=== PATIENT | male | born 1995 | race Caucasian/White ===

== ENCOUNTER 2016-07-25 17:20 | Emergency (ER) | payer OTHER ==
[2016-07-25 17:32] VITALS: BP 118/65
--- NOTE | 2016-07-25 18:11 | UC ---
Back Pain HPI - HPI Summary HPI Summary: This is an otherwise healthy 20 yo male who presents with complaints of acute back pain. Patient was carrying to garbage bags outside and threw them into the garbage can. He had a sudden onset of severe mid back pain with SOB that lasted ~30 sec. SOB resoled but back pain persisted. He took APAP and applied heat at home before coming in to be examined. No history of back pain. - History of Current Complaint Chief Complaint: UCBackPain Stated Complaint: BACK INJURY - Allergies/Home Medications Allergies/Adverse Reactions: Allergies Allergy/AdvReac Type Severity Reaction Status Date / Time BENZYL PEROXIDE (TOPICAL) Allergy Severe Rash Uncoded 02/22/16 10:31 Home Medications: Home Medications Acetaminophen [Tylenol 8 Hour] 1,000 07/25/16 [History] Glutamine 500 mg PO 07/25/16 [History] PMH/Surg Hx/FS Hx/Imm Hx Endocrine History Of: Denies: Diabetes, Thyroid Disease, Hyperthyroidism, Hypothyroidism Cardiovascular History Of: Denies: Cardiac Disorders, Hypertension, Pacemaker/ICD Respiratory History Of: Reports: Asthma Denies: COPD GI/ History Of: Denies: Ulcer, Renal Disease Psychological History Of: Reports: Anxiety, Depression - Surgical History Surgical History: Yes Surgery Procedure, Year, and Place: RIGHT CLAVICLE. 07/2012- LEFT FOOT CALCANEUS /TALUS FUSION- PATIENT HAS A SCREW IN LEFT FOOT AND HAD PAIN/BURNING/PULLING SENSATION IN FOOT AT SITE OF SCREW WHEN WE ATTEMPTED TO SCAN HIS KNEE AT THE 3T - PT WAS RESCHEDULED FOR 1.5 AND WAS FINE- PT SHOULD NOT BE SCHEDULED FOR 3T. pyleoplasty to left kidney 03/30. MMT REPAIR LEFT KNEE - Family History Known Family History: Positive: None - Social History Alcohol Use: Weekly Alcohol Amount: 1 drink per week Substance Use Type: None Smoking Status (MU): Former Smoker Type: Smokeless Tobacco Have You Smoked in the Last Year: Yes - Immunization History Most Recent Influenza Vaccination: doesn't get Review of Systems Constitutional: Negative Skin: Negative Eyes: Negative ENT: Negative Respiratory: Negative Cardiovascular: Negative Gastrointestinal: Negative Genitourinary: Negative Motor: Negative Neurovascular: Negative Musculoskeletal: Arthralgia, Decreased ROM Neurological: Negative Psychological: Negative All Other Systems Reviewed And Are Negative: Yes Physical Exam Triage Information Reviewed: Yes Appearance: Well-Appearing Vital Signs: Initial Vital Signs Temp 98.3 F 07/25/16 17:27 Pulse 90 07/25/16 17:27 Resp 16 07/25/16 17:27 BP 118/65 07/25/16 17:27 Pulse Ox 99 07/25/16 17:27 Vital Signs Reviewed: Yes Neck exam: Normal Neck: Positive: Supple, Nontender, No Lymphadenopathy Respiratory Exam: Normal Respiratory: Positive: Lungs clear, Normal breath sounds. Negative: Crackles, Rhonchi, Wheezing Cardiovascular Exam: Normal Cardiovascular: Positive: RRR, No Murmur Abdominal Exam: Normal Abdomen Description: Positive: Nontender, Soft Musculoskeletal: Positive: Strength Intact, Other: - TTP over mid thoracic spine and R sided paraspinal TTP Neurological: Positive: Muscle Tone Normal, Unresponsive Diagnostics - Laboratory Diagnostic Studies Completed/Ordered: CXR - NAD. Tspine XR - NAD Back Pain Course/Dx - Course Course Of Treatment: This is an otherwise healthy 20 yo male who comes in with acute back pain. History is consistent with a thoracic disc herniation. Imaging negative. No acute neurologic symptoms on exam. Recommend ice/heat, NSAIDs. - Differential Dx/Diagnosis Differential Diagnosis/HQI/PQRI: Compressive Cord Syndrome, Fracture, Herniated Disc Provider Diagnoses: 1. Suspected thoracic disc herniation Discharge - Discharge Plan Condition: Stable Disposition: HOME Prescriptions: Cyclobenzaprine TAB* [Flexeril 10 MG TAB*] 10 mg PO TID PRN #20 tab PRN Reason: back pain/spasm Patient Education Materials: Thoracic Disc Herniation (ED) Referrals: Fareed Wheat MD [Primary Care Provider] - If Needed Additional Instructions: Activity: As tolerated Instructions: 1. Take 600-800 mg ibuprofen three times daily for the next several days 2. Use flexeril as needed for pain/spasm 3. Follow up with your PCP if you are still having pain after 7-10 days
--- NOTE | 2016-07-25 18:55 | RAD ---
Indication: Back pain. Comparison: May 24, 2013 chest radiograph. Technique: AP and lateral views thoracic spine. Report: Normal thoracic spine alignment. Negative for fracture or focal osseous lesion. Preserved disc spaces. Unremarkable paraspinal soft tissue contours. IMPRESSION: Negative exam.
--- NOTE | 2016-07-25 18:56 | RAD ---
INDICATION: Back pain, acute shortness of breath. COMPARISON: May 24, 2013 TECHNIQUE: Dual energy PA and routine lateral views of the chest were obtained. REPORT: Clear lungs and pleural spaces. Negative for pneumothorax. The heart, pulmonary vasculature, and mediastinal contours are unremarkable. Unremarkable osseous structures and soft tissue contours. IMPRESSION: No evidence for acute intrathoracic disease.
[2016-07-25] MEDS: Cyclobenzaprine TAB* 10 MG PO ONE ×2 (19:16→19:17)
== END 2016-07-25 19:18 | disposition home or self-care (01) ==
LOC: UCEAST 17:20
DX: M54.6 Pain in thoracic spine (principal); Z87.891 Personal history of nicotine dependence
CPT/HCPCS: 71020; 72070; 99212; A9270-GY; G0463

== ENCOUNTER 2016-11-06 16:52 | Emergency (ER) | payer MEDICAID, OTHER ==
[2016-11-06 16:59] VITALS: BP 107/68
--- NOTE | 2016-11-06 18:12 | UC ---
Headache HPI - HPI Summary HPI Summary: THREE WEEKS OF INTERMITTENT HEADACHE. ON RIGHT SIDE OF HEAD. NO FEVER. NO VISION CHANGES. OFTEN CONTROLLED BY EXCEDERIN. NO TRAUMA. NO NECK STIFFNESS. HAVING STRESS ABOUT MOVING, BUT HAS BEEN ONGOING FOR SEVERAL MONTHS. HAS PRIMARY CARE APPT TO EVALUATE HEADACHES SCHEDULED FOR NEXT WEEK - History Of Current Complaint Chief Complaint: UCHeadamartir Stated Complaint: HEADACHE Time Seen by Provider: 11/06/16 17:42 Hx Obtained From: Patient Onset/Duration: Gradual Onset, Lasting Weeks, Still Present Onset Of Symptoms: Gradual Pain Intensity: 3 Pain Scale Used: 0-10 Numeric Timing: Intermittent, Lasting:, Hours Character: Dull Location of Headache: Parietal - RIGHT SIDE Aggravating Factor: Nothing Allevating Factors: Nothing Associated Signs And Symptoms: Negative: Dizziness, Seizure, Nausea, Vomiting, Sinus Pressure, Fever, Neck Pain, Neck Stiffness, Decreased LOC, Visual Changes - Risk Factors SAH Risk Factors: Negative Meningitis Risk Factors: Negative SDH Risk Factors: Negative Temporal Arteritis Risk Factors: Negative - Allergies/Home Medications Allergies/Adverse Reactions: Allergies Allergy/AdvReac Type Severity Reaction Status Date / Time BENZYL PEROXIDE (TOPICAL) Allergy Severe Rash Uncoded 11/06/16 16:59 Home Medications: Home Medications Creatine [[id number]] 11/06/16 [History] Glutamine [l-Glutamine] 11/06/16 [History Confirmed 11/06/16] Levocarnitine [Carnitine] 11/06/16 [History] Protein Supplement* 11/06/16 [History] PMH/Surg Hx/FS Hx/Imm Hx Previously Healthy: Yes - Surgical History Surgical History: Yes Surgery Procedure, Year, and Place: RIGHT CLAVICLE. 07/2012- LEFT FOOT CALCANEUS /TALUS FUSION- PATIENT HAS A SCREW IN LEFT FOOT AND HAD PAIN/BURNING/PULLING SENSATION IN FOOT AT SITE OF SCREW WHEN WE ATTEMPTED TO SCAN HIS KNEE AT THE 3T - PT WAS RESCHEDULED FOR 1.5 AND WAS FINE- PT SHOULD NOT BE SCHEDULED FOR 3T. pyleoplasty to left kidney 03/30. MMT REPAIR LEFT KNEE - Family History Known Family History: Positive: None - Social History Lives: With Family Alcohol Use: None Alcohol Amount: 1 drink per week Substance Use Type: None Smoking Status (MU): Former Smoker Type: Smokeless Tobacco Have You Smoked in the Last Year: Yes - Immunization History Most Recent Influenza Vaccination: doesn't get Review of Systems Constitutional: Negative Skin: Negative Eyes: Negative ENT: Negative Respiratory: Negative Cardiovascular: Negative Gastrointestinal: Negative Genitourinary: Negative Motor: Negative Neurovascular: Negative Musculoskeletal: Negative Neurological: Headache Psychological: Negative All Other Systems Reviewed And Are Negative: Yes Physical Exam Triage Information Reviewed: Yes Appearance: Well-Appearing, No Pain Distress, Well-Nourished Vital Signs: Initial Vital Signs Temp 98.4 F 11/06/16 16:56 Pulse 75 11/06/16 16:56 Resp 16 11/06/16 16:56 BP 107/68 11/06/16 16:56 Pulse Ox 99 11/06/16 16:56 Vital Signs Reviewed: Yes Eye Exam: Normal ENT Exam: Normal ENT: Positive: Normal ENT inspection, Hearing grossly normal, Pharynx normal, TMs normal Dental Exam: Normal Neck exam: Normal Neck: Positive: Supple, Nontender, No Lymphadenopathy. Negative: Nuchal Rigidity, Tenderness @, Enlarged Nodes @ Respiratory Exam: Normal Respiratory: Positive: Chest non-tender, Lungs clear, Normal breath sounds, No respiratory distress, No accessory muscle use Cardiovascular Exam: Normal Cardiovascular: Positive: RRR, No Murmur, Pulses Normal Abdominal Exam: Normal Abdomen Description: Positive: Nontender, No Organomegaly Musculoskeletal Exam: Normal Neurological Exam: Normal Psychological Exam: Normal Psychological: Positive: Normal Response To Family Skin Exam: Normal Headache Course/Dx - Differential Dx/Diagnosis Differential Diagnosis/HQI/PQRI: Meningitis, Migraine, Sinus Headache, Temporal Arteritis, Tension Headache Provider Diagnoses: TENSION HEADACHE Discharge - Discharge Plan Condition: Stable Disposition: HOME Prescriptions: Butalb/Acetamin/Caff TAB* [Fioricet TAB*] 1 tab PO Q8HR PRN #12 tab MDD three tabs PRN Reason: Headache Patient Education Materials: Tension Headache (ED) Referrals: Iliana Julian MD [Medical Doctor] - Fareed Wheat MD [Primary Care Provider] -
== END 2016-11-06 17:59 | disposition home or self-care (01) ==
LOC: UCEAST 16:52
DX: G44.209 Tension-type headache, unspecified, not intractable (principal)
CPT/HCPCS: 99212; G0463

== ENCOUNTER 2016-11-19 21:52 | Emergency (ER) | payer MEDICAID ==
[2016-11-19 21:59] VITALS: BP 118/66
--- NOTE | 2016-11-19 22:45 | UC ---
Katie Mcadams Edward, scribed for Jacob Diaz MD on 11/19/16 at 2220 . Upper Extremity HPI - HPI Summary HPI Summary: 21 y/o male presents to [facility] c/o R wrist pain. Patient fell on his R wrist while helping his mother move at around 14:00 today. Wrist pain was rated at a 7 /10 at triage, described as an aching pain. Patient's R wrist fell on a large bowl. Since the fall, patient's wrist pain has gotten progressively worse and he has developed R wrist swelling. - History of Current Complaint Chief Complaint: UCLowerExtremity Stated Complaint: RT ARM INJURY Hx Obtained From: Patient Onset/Duration: Sudden Onset, Lasting Hours - Since early afternoon Severity Initially: Moderate Severity Currently: Moderate Pain Intensity: 7 Pain Scale Used: 0-10 Numeric Location Of Pain: Is Discrete @ - R wrist Associated Signs And Symptoms: Positive: Swelling - Allergies/Home Medications Allergies/Adverse Reactions: Allergies Allergy/AdvReac Type Severity Reaction Status Date / Time BENZYL PEROXIDE (TOPICAL) Allergy Severe Rash Uncoded 11/19/16 21:59 PMH/Surg Hx/FS Hx/Imm Hx Previously Healthy: No Respiratory History: Asthma - Surgical History Surgical History: Yes Surgery Procedure, Year, and Place: RIGHT CLAVICLE. 07/2012- LEFT FOOT CALCANEUS /TALUS FUSION- PATIENT HAS A SCREW IN LEFT FOOT AND HAD PAIN/BURNING/PULLING SENSATION IN FOOT AT SITE OF SCREW WHEN WE ATTEMPTED TO SCAN HIS KNEE AT THE 3T - PT WAS RESCHEDULED FOR 1.5 AND WAS FINE- PT SHOULD NOT BE SCHEDULED FOR 3T. pyleoplasty to left kidney 03/30. MMT REPAIR LEFT KNEE - Family History Known Family History: Negative: Cardiac Disease - Social History Alcohol Use: None Alcohol Amount: 1 drink per week Substance Use Type: None Smoking Status (MU): Former Smoker Type: Smokeless Tobacco Have You Smoked in the Last Year: Yes - Immunization History Most Recent Influenza Vaccination: doesn't get Review of Systems Constitutional: Negative Skin: Negative Eyes: Negative ENT: Negative Respiratory: Negative Cardiovascular: Negative Gastrointestinal: Negative Genitourinary: Negative Motor: Negative Neurovascular: Negative Musculoskeletal: Arthralgia - R wrist pain, Edema - Mild R wrist edema Neurological: Negative Psychological: Negative All Other Systems Reviewed And Are Negative: Yes Physical Exam Triage Information Reviewed: Yes Appearance: Well-Appearing, No Pain Distress Vital Signs: Initial Vital Signs Temp 97.2 F 11/19/16 21:54 Pulse 81 11/19/16 21:54 Resp 16 11/19/16 21:54 BP 118/66 11/19/16 21:54 Pulse Ox 100 11/19/16 21:54 Vital Signs Reviewed: Yes Eye Exam: Normal ENT: Positive: Normal ENT inspection Neck: Positive: Supple, Nontender Respiratory: Positive: Lungs clear, Normal breath sounds Cardiovascular: Positive: RRR Abdomen Description: Positive: Nontender, Soft Bowel Sounds: Positive: Present Musculoskeletal: Positive: Strength Intact, ROM Intact Neurological Exam: Normal Neurological: Positive: Alert Psychological Exam: Normal Skin: Positive: Other - 4 cm erythema on distal ulna proximal to wrist join. Slightly swollen and tender in that area. No skin break. Upper Extremity Course/Dx - Course Course Of Treatment: MEDICATIONS REVIEWED. NO CLINICAL EVIDENCE OF FRACTURE. DISCUSSED INJURY AND THE CARE OF THE INJURY WITH PATIENT. PATIENT WILL GET RECHECK IF NOT IMPROVING. - Differential Dx/Diagnosis Provider Diagnoses: RIGHT WRIST CONTUSION/SPRAIN Discharge - Discharge Plan Condition: Stable Disposition: HOME Patient Education Materials: Contusion in Adults (ED), Wrist Sprain (ED) Referrals: Fareed Wheat MD [Primary Care Provider] - Additional Instructions: FOLLOW UP WITH YOUR DOCTOR. RETURN TO THE EMERGENCY DEPARTMENT FOR ANY WORSENING OF YOUR CONDITION OR QUESTIONS OR CONCERNS. The documentation as recorded by the Katie lozano Edward accurately reflects the service I personally performed and the decisions made by me, Jacob Diaz MD.
== END 2016-11-19 22:30 | disposition home or self-care (01) ==
LOC: UCEAST 21:52
DX: S63.501A Unspecified sprain of right wrist, initial encounter (principal); S60.211A Contusion of right wrist, initial encounter; W01.0XXA Fall on same level from slipping, tripping and stumbling without subsequent striking against object, initial encounter; J45.909 Unspecified asthma, uncomplicated; F17.210 Nicotine dependence, cigarettes, uncomplicated
CPT/HCPCS: 99211; G0463

== ENCOUNTER 2016-12-13 22:29 | Emergency (ER) | payer MEDICAID, OTHER ==
[2016-12-13 22:40] VITALS: BP 121/80
== END 2016-12-14 00:49 | disposition left against medical advice (07) ==
LOC: ED 22:29
DX: H92.01 Otalgia, right ear (principal); Z53.21 Procedure and treatment not carried out due to patient leaving prior to being seen by health care provider

== ENCOUNTER 2016-12-14 13:55 | Emergency (ER) | payer OTHER ==
[2016-12-14 14:02] VITALS: BP 123/74
--- NOTE | 2016-12-14 14:45 | UC ---
Ear Complaint HPI - HPI Summary HPI Summary: RIGHT EAR PAIN FOR ONE DAY. ON 12/10/16 HAD SORE THROAT FEVER 102F, HEADACHE. SYMPTOMS RESOLVED THE NEXT DAY. USED QTIP TWO DAYS AGO. LAST NIGHT BEGAN HAVING EAR ACHE. NO DISCHARGE. - History of Current Complaint Chief Complaint: UCEar Stated Complaint: EAR PAIN Time Seen by Provider: 12/14/16 13:56 Hx Obtained From: Patient Onset/Duration: Gradual Onset, Lasting Days, Still Present Severity Initially: Moderate Severity Currently: Moderate Pain Intensity: 6 Pain Scale Used: 0-10 Numeric - Allergies/Home Medications Allergies/Adverse Reactions: Allergies Allergy/AdvReac Type Severity Reaction Status Date / Time BENZYL PEROXIDE (TOPICAL) Allergy Severe Rash Uncoded 12/14/16 14:02 Home Medications: Home Medications Acetaminophen [Mapap] 1 tab PO Q6HR PRN 12/14/16 [History Confirmed 12/14/16] Ascorbic Acid TAB* [Vitamin C TAB*] 1 tab PO DAILY PRN 12/14/16 [History Confirmed 12/14/16] Ear Drops 1 drop OTIC Q2HR PRN 12/14/16 [History Confirmed 12/14/16] PMH/Surg Hx/FS Hx/Imm Hx Previously Healthy: Yes - Surgical History Surgical History: Yes Surgery Procedure, Year, and Place: RIGHT CLAVICLE. 07/2012- LEFT FOOT CALCANEUS /TALUS FUSION- PATIENT HAS A SCREW IN LEFT FOOT AND HAD PAIN/BURNING/PULLING SENSATION IN FOOT AT SITE OF SCREW WHEN WE ATTEMPTED TO SCAN HIS KNEE AT THE 3T - PT WAS RESCHEDULED FOR 1.5 AND WAS FINE- PT SHOULD NOT BE SCHEDULED FOR 3T. pyleoplasty to left kidney 03/30. MMT REPAIR LEFT KNEE - Family History Known Family History: Positive: None Negative: Cardiac Disease - Social History Occupation: Employed Full-time Lives: With Family Alcohol Use: Occasionally Alcohol Amount: 1 drink per week Substance Use Type: None Smoking Status (MU): Former Smoker Type: Smokeless Tobacco Have You Smoked in the Last Year: Yes - Immunization History Most Recent Influenza Vaccination: doesn't get Review of Systems Constitutional: Negative Skin: Negative ENT: Ear Ache Respiratory: Negative Cardiovascular: Negative Gastrointestinal: Negative Genitourinary: Negative Motor: Negative Neurovascular: Negative Musculoskeletal: Negative Neurological: Negative Psychological: Negative All Other Systems Reviewed And Are Negative: Yes Physical Exam Triage Information Reviewed: Yes Appearance: Well-Appearing, No Pain Distress, Well-Nourished Vital Signs: Initial Vital Signs Temp 98.8 F 12/14/16 13:58 Pulse 71 12/14/16 13:58 Resp 16 12/14/16 13:58 BP 123/74 12/14/16 13:58 Pulse Ox 100 12/14/16 13:58 Vital Signs Reviewed: Yes ENT: Positive: Normal ENT inspection, Hearing grossly normal, Pharynx normal, TMs normal, Other: - RIGHT ERYTHEMA EDEMA EAC Dental Exam: Normal Neck exam: Normal Neck: Positive: Supple Respiratory Exam: Normal Respiratory: Positive: Chest non-tender, Lungs clear, Normal breath sounds, No respiratory distress, No accessory muscle use Cardiovascular Exam: Normal Cardiovascular: Positive: RRR, No Murmur Abdominal Exam: Normal Musculoskeletal Exam: Normal Musculoskeletal: Positive: Strength Intact, ROM Intact Neurological Exam: Normal Psychological Exam: Normal Skin Exam: Normal Ear Complaint Course/Dx - Differential Dx/Diagnosis Differential Diagnosis/HQI/PQRI: Otitis Externa, Otitis Media, URI Provider Diagnoses: RIGHT OTITIS EXTERNA Discharge - Discharge Plan Condition: Stable Disposition: HOME Prescriptions: Ciproflox/Dexameth OTIC.SUSP* [Ciprodex OTIC.SUSP*] 3 drop .SEE ORDER TID #1 btl Patient Education Materials: Otitis Externa (ED) Referrals: Fareed Wheat MD [Primary Care Provider] -
== END 2016-12-14 14:34 | disposition home or self-care (01) ==
LOC: UCEAST 13:55
DX: H60.91 Unspecified otitis externa, right ear (principal); Z87.891 Personal history of nicotine dependence
CPT/HCPCS: 99212; G0463

== ENCOUNTER 2016-12-15 14:24 | Emergency (ER) | payer OTHER ==
--- NOTE | 2016-12-15 14:27 | UC ---
Ear Complaint HPI - HPI Summary HPI Summary: 21 male presents with complains of right ear pain. - History of Current Complaint Stated Complaint: RECHECK EAR PAIN Time Seen by Provider: 12/15/16 14:27 - Allergies/Home Medications Allergies/Adverse Reactions: Allergies Allergy/AdvReac Type Severity Reaction Status Date / Time BENZYL PEROXIDE (TOPICAL) Allergy Severe Rash Uncoded 12/15/16 14:34 PMH/Surg Hx/FS Hx/Imm Hx Previously Healthy: Yes - Surgical History Surgical History: Yes Surgery Procedure, Year, and Place: RIGHT CLAVICLE. 07/2012- LEFT FOOT CALCANEUS /TALUS FUSION- PATIENT HAS A SCREW IN LEFT FOOT AND HAD PAIN/BURNING/PULLING SENSATION IN FOOT AT SITE OF SCREW WHEN WE ATTEMPTED TO SCAN HIS KNEE AT THE 3T - PT WAS RESCHEDULED FOR 1.5 AND WAS FINE- PT SHOULD NOT BE SCHEDULED FOR 3T. pyleoplasty to left kidney 03/30. MMT REPAIR LEFT KNEE - Family History Known Family History: Positive: None Negative: Cardiac Disease - Social History Alcohol Use: Occasionally Alcohol Amount: 1 drink per week Substance Use Type: None Smoking Status (MU): Former Smoker Type: Smokeless Tobacco Have You Smoked in the Last Year: Yes - Immunization History Most Recent Influenza Vaccination: doesn't get Review of Systems Constitutional: Negative Skin: Negative Eyes: Negative ENT: Ear Ache - right ear pain Respiratory: Negative Cardiovascular: Negative Gastrointestinal: Negative Genitourinary: Negative Motor: Negative Neurovascular: Negative Musculoskeletal: Negative Neurological: Negative Psychological: Negative All Other Systems Reviewed And Are Negative: Yes Physical Exam Triage Information Reviewed: Yes Eye Exam: Normal ENT: Positive: TM bulging, TM red, Other: - right otits externa Dental Exam: Normal Neck exam: Normal Neck: Positive: 1 Respiratory Exam: Normal Cardiovascular Exam: Normal Abdominal Exam: Normal Musculoskeletal Exam: Normal Neurological Exam: Normal Psychological Exam: Normal Skin Exam: Normal Ear Complaint Course/Dx - Differential Dx/Diagnosis Provider Diagnoses: right otits externa. right AOM. Discharge - Discharge Plan Condition: Stable Disposition: HOME Prescriptions: Amoxicillin/Clavulanate TAB* [Augmentin TAB 875*] 875 mg PO BID #20 tab Methylprednisolone [Medrol Dosepak 4 MG*] 4 mg PO .SEE JUSTUS INSTRUCTION #21 tab Neomyc/Polym/HC 1% OTIC SUSP* [Cortisporin Otic Susp 1%*] 4 drop RIGHT EAR QID # 1 btl Patient Education Materials: Earache (ED) Referrals: Fareed Wheat MD [Primary Care Provider] - If Needed
[2016-12-15 14:34] VITALS: BP 109/66
[2016-12-15] MEDS ORDERED: Carbamide Peroxide 6.5% OTIC* 15 ML BTL RIGHT EAR ONE (14:41)
[2016-12-15] MEDS ORDERED: Lidocaine 2% VISCOUS* 15 ML UDC PO ONE (15:05)
== END 2016-12-15 15:37 | disposition home or self-care (01) ==
LOC: UCEAST 14:24
DX: H60.91 Unspecified otitis externa, right ear (principal); H66.91 Otitis media, unspecified, right ear; Z87.891 Personal history of nicotine dependence
CPT/HCPCS: 99213; A9270-GY; G0463

== ENCOUNTER 2017-05-23 13:39 | Emergency (ER) | payer OTHER ==
[2017-05-23 13:57] VITALS: BP 115/67
--- NOTE | 2017-05-23 14:38 | UC ---
Dental HPI - HPI Summary HPI Summary: R upper jaw/tooth pain starting about 3 weeks ago. Has been intensifying/more constant for the last 1.5 weeks. Reports he needs his third molars removed and that he has an extra molar in the painful area. No swelling or fevers or drainage. Denies temperature sensitivity, mainly has pain with chewing. - History of Current Complaint Chief Complaint: UCEar Stated Complaint: DENTAL PAIN Time Seen by Provider: 05/23/17 14:14 Hx Obtained From: Patient Onset/Duration: Gradual Onset, Lasting Weeks Severity: Moderate Aggravating Factor(s): Chewing Alleviating Factor(s): Nothing - Allergies/Home Medications Allergies/Adverse Reactions: Allergies Allergy/AdvReac Type Severity Reaction Status Date / Time BENZYL PEROXIDE (TOPICAL) Allergy Severe Rash Uncoded 05/23/17 13:57 Home Medications: Home Medications Ibuprofen [Advil] 600 mg PO Q6H PRN 05/23/17 [History Confirmed 05/23/17] PMH/Surg Hx/FS Hx/Imm Hx Respiratory History: Asthma Neurological History: Migraine Other Psychological History: ADHD - Surgical History Surgical History: Yes Surgery Procedure, Year, and Place: RIGHT CLAVICLE. 07/2012- LEFT FOOT CALCANEUS /TALUS FUSION- PATIENT HAS A SCREW IN LEFT FOOT AND HAD PAIN/BURNING/PULLING SENSATION IN FOOT AT SITE OF SCREW WHEN WE ATTEMPTED TO SCAN HIS KNEE AT THE 3T - PT WAS RESCHEDULED FOR 1.5 AND WAS FINE- PT SHOULD NOT BE SCHEDULED FOR 3T. pyleoplasty to left kidney 03/30. MMT REPAIR LEFT KNEE - Family History Known Family History: Positive: None Negative: Cardiac Disease - Social History Lives: Alone Alcohol Use: Occasionally Alcohol Amount: 1 drink per week Substance Use Type: None Smoking Status (MU): Never Smoked Tobacco Type: Smokeless Tobacco Have You Smoked in the Last Year: Yes - Immunization History Most Recent Influenza Vaccination: none Review of Systems Constitutional: Negative Skin: Negative Eyes: Negative ENT: Dental Pain Respiratory: Negative Cardiovascular: Negative Gastrointestinal: Negative Genitourinary: Negative Motor: Negative Neurovascular: Negative Musculoskeletal: Negative Neurological: Negative Psychological: Negative Is Patient Immunocompromised?: No All Other Systems Reviewed And Are Negative: Yes Physical Exam Triage Information Reviewed: Yes Appearance: Well-Appearing, Well-Nourished, Pain Distress - mild Vital Signs: Initial Vital Signs Temp 98.0 F 05/23/17 13:53 Pulse 69 05/23/17 13:53 Resp 16 05/23/17 13:53 BP 115/67 05/23/17 13:53 Pulse Ox 99 05/23/17 13:53 Vital Signs Reviewed: Yes Eye Exam: Normal Eyes: Positive: Conjunctiva Clear ENT: Positive: Normal ENT inspection, Hearing grossly normal, Pharynx normal, TMs normal. Negative: Pharyngeal erythema, Nasal congestion, Nasal drainage, TM bulging, TM dull, TM red, Tonsillar swelling Dental Exam: Other - Pain around unerupted teeth #1 and extra molar (negative 1? ). No swelling or erythema Dental: Negative: Percussion Tenderness @, Gross Decay/Caries @ Neck exam: Normal Neck: Positive: Supple, Nontender, No Lymphadenopathy Respiratory Exam: Normal Respiratory: Positive: Chest non-tender, Lungs clear, Normal breath sounds, No respiratory distress, No accessory muscle use Cardiovascular Exam: Normal Cardiovascular: Positive: RRR, No Murmur Musculoskeletal Exam: Normal Neurological Exam: Normal Neurological: Positive: Alert Psychological Exam: Normal Skin Exam: Normal Dental Complaint Course/Dx - Differential Dx/Diagnosis Provider Diagnoses: Dental pain r upper molars Discharge - Discharge Plan Condition: Stable Disposition: HOME Prescriptions: HYDROcodone/ACETAMIN 5-325 MG* [[place] 5-325 TAB*] 1 tab PO BID #12 tab MDD 2 Naproxen TAB* [Naprosyn 375 mg TAB*] 375 mg PO Q8H PRN #21 tab PRN Reason: Pain Penicillin VK 500 MG TAB(NF) [Penicillin VK 500 mg Tab] 500 mg PO TID #21 tab Patient Education Materials: Toothache (ED) Referrals: Fareed Wheat MD [Primary Care Provider] - Additional Instructions: As we discussed, you will need urgent dental care. Make calls first thing tomorrow: Located in: [facility] Address: [address] [place] [address] Or [facility] Address: [address] [place] [address] If you develop fever, swelling, or worsening symptoms prior to dental care, please go to the nearest emergency department.
== END 2017-05-23 14:42 | disposition home or self-care (01) ==
LOC: UCEAST 13:39
DX: K08.89 Other specified disorders of teeth and supporting structures (principal); J45.909 Unspecified asthma, uncomplicated; G43.909 Migraine, unspecified, not intractable, without status migrainosus; F90.9 Attention-deficit hyperactivity disorder, unspecified type
CPT/HCPCS: 99212; G0463

== ENCOUNTER 2017-11-22 12:32 | Emergency (ER) | payer OTHER ==
[2017-11-22 12:52] VITALS: BP 119/72
--- NOTE | 2017-11-22 13:12 | UC ---
Back Pain HPI - HPI Summary HPI Summary: The patient is a 22-year-old male with the onset of back pain that occurred while he was working out at the gym. He was doing bicep curls. He had the acute onset of severe pain radiating from his lower scapula down to his iliac crests bilaterally. He has pain with twisting. He can bend at the waist but can only do so slowly. He has no bowel or bladder dysfunction. He has no leg pain or weakness. - History of Current Complaint Chief Complaint: UCBackPain Stated Complaint: BACK PAIN Time Seen by Provider: 11/22/17 12:55 Hx Obtained From: Patient Onset/Duration: Sudden Onset Timing: Constant Severity Initially: Severe Severity Currently: Moderate Pain Intensity: 5 Pain Scale Used: 0-10 Numeric Character: Dull, Aching, Throbbing, Spasmodic, Stiffness Aggravating Factor(s): Movement, Lifting, Bending Alleviating Factor(s): Rest, OTC Meds Associated Signs And Symptoms: Positive: Negative - Allergies/Home Medications Allergies/Adverse Reactions: Allergies Allergy/AdvReac Type Severity Reaction Status Date / Time BENZYL PEROXIDE (TOPICAL) Allergy Severe Rash Uncoded 11/22/17 12:52 PMH/Surg Hx/FS Hx/Imm Hx Previously Healthy: Yes - Surgical History Surgical History: Yes Surgery Procedure, Year, and Place: RIGHT CLAVICLE. 07/2012- LEFT FOOT CALCANEUS /TALUS FUSION- PATIENT HAS A SCREW IN LEFT FOOT AND HAD PAIN/BURNING/PULLING SENSATION IN FOOT AT SITE OF SCREW WHEN WE ATTEMPTED TO SCAN HIS KNEE AT THE 3T - PT WAS RESCHEDULED FOR 1.5 AND WAS FINE- PT SHOULD NOT BE SCHEDULED FOR 3T. pyleoplasty to left kidney 03/30. MMT REPAIR LEFT KNEE - Family History Known Family History: Positive: None, Hypertension Negative: Cardiac Disease - Social History Alcohol Use: Rare Alcohol Amount: 1 drink per week Substance Use Type: None Smoking Status (MU): Never Smoked Tobacco Type: Smokeless Tobacco Have You Smoked in the Last Year: Yes - Immunization History Most Recent Influenza Vaccination: none Review of Systems Constitutional: Negative Skin: Negative Eyes: Negative ENT: Negative Respiratory: Negative Cardiovascular: Negative Gastrointestinal: Negative Genitourinary: Negative Motor: Negative Neurovascular: Negative Musculoskeletal: Myalgia Neurological: Negative Psychological: Negative Is Patient Immunocompromised?: No All Other Systems Reviewed And Are Negative: Yes Physical Exam Triage Information Reviewed: Yes Appearance: Well-Appearing, No Pain Distress, Well-Nourished Vital Signs: Initial Vital Signs Temp 99.0 F 11/22/17 12:48 Pulse 55 11/22/17 12:48 Resp 18 11/22/17 12:48 BP 119/72 11/22/17 12:48 Pulse Ox 98 11/22/17 12:48 Eyes: Positive: Conjunctiva Clear ENT: Positive: Hearing grossly normal. Negative: Nasal congestion, Nasal drainage, Trismus, Muffled voice, Hoarse voice, Uvula midline Neck: Positive: Supple, Nontender Respiratory: Positive: Lungs clear, Normal breath sounds, No respiratory distress, No accessory muscle use Cardiovascular: Positive: RRR, No Murmur Abdomen Description: Positive: Nontender, No Organomegaly Musculoskeletal: Positive: ROM Intact, No Edema Neurological: Positive: Alert Psychological Exam: Normal Skin Exam: Normal Back Pain Course/Dx - Differential Dx/Diagnosis Provider Diagnoses: rhomboid and paraspinous myofascial strain/spasm Discharge - Sign-Out/Discharge Documenting (check all that apply): Discharge/Admit/Transfer - Discharge Plan Condition: Stable Disposition: HOME Prescriptions: Cyclobenzaprine TAB* [Flexeril TAB*] 5 mg PO TID PRN #9 tab PRN Reason: Spasms Patient Education Materials: Back Pain (ED) Forms: *Work Release Referrals: Fareed Wheat MD [Primary Care Provider] - 1 Week Additional Instructions: continue ibuprofen PT consult - Billing Disposition and Condition Condition: STABLE Disposition: Home Images Front/Back of Body, Lg (Smith): 1 - pain here
== END 2017-11-22 13:16 | disposition home or self-care (01) ==
LOC: UCEAST 12:32
DX: S39.012A Strain of muscle, fascia and tendon of lower back, initial encounter (principal); S46.819A Strain of other muscles, fascia and tendons at shoulder and upper arm level, unspecified arm, initial encounter; M62.838 Other muscle spasm; M54.9 Dorsalgia, unspecified; Z88.8 Allergy status to other drugs, medicaments and biological substances; X50.1XXA Overexertion from prolonged static or awkward postures, initial encounter; Y93.B3 Activity, free weights; Y92.39 Other specified sports and athletic area as the place of occurrence of the external cause
CPT/HCPCS: 99202; G0463

== ENCOUNTER 2018-01-20 14:19 | Emergency (ER) | payer OTHER ==
[2018-01-20 14:39] VITALS: BP 130/80
--- NOTE | 2018-01-20 15:05 | UC ---
Neck Pain HPI - HPI Summary HPI Summary: The patient is a 22 yo male with the onset of neck and upper back pain after completing reps in a gym Pain with turn head pain with deep breath no paresthesias or weakness - History of Current Complaint Chief Complaint: UCBackPain Stated Complaint: NECK AND BACK PAIN Time Seen by Provider: 01/20/18 14:40 Hx Obtained From: Patient Onset/Duration Of Injury/Symptoms: Hours Mechanism Of Injury: No Known Trauma Timing: Constant Onset/Duration: Gradual Onset Severity: Severe Pain Intensity: 8 Pain Scale Used: 0-10 Numeric Location: Diffuse Character: Aching, Spasmotic Aggravating Factors: Position, Movement Alleviating Factors: Nothing Associated Signs & Symptoms: Positive: Negative - Allergies/Home Medications Allergies/Adverse Reactions: Allergies Allergy/AdvReac Type Severity Reaction Status Date / Time BENZYL PEROXIDE (TOPICAL) Allergy Severe Rash Uncoded 01/20/18 14:32 PMH/Surg Hx/FS Hx/Imm Hx Previously Healthy: Yes - Surgical History Surgical History: Yes Surgery Procedure, Year, and Place: RIGHT CLAVICLE. 07/2012- LEFT FOOT CALCANEUS /TALUS FUSION- PATIENT HAS A SCREW IN LEFT FOOT AND HAD PAIN/BURNING/PULLING SENSATION IN FOOT AT SITE OF SCREW WHEN WE ATTEMPTED TO SCAN HIS KNEE AT THE 3T - PT WAS RESCHEDULED FOR 1.5 AND WAS FINE- PT SHOULD NOT BE SCHEDULED FOR 3T. pyleoplasty to left kidney 03/30. MMT REPAIR LEFT KNEE - Family History Known Family History: Positive: Hypertension Negative: Cardiac Disease, Diabetes - Social History Alcohol Use: Rare Alcohol Amount: 1 drink per week Substance Use Type: None Smoking Status (MU): Never Smoked Tobacco Type: Smokeless Tobacco Have You Smoked in the Last Year: Yes - Immunization History Most Recent Influenza Vaccination: none Review Of Systems Constitutional: Positive: Negative Skin: Positive: Negative Eyes: Positive: Negative ENT: Positive: Negative Respiratory: Positive: Negative Cardiovascular: Positive: Negative Gastrointestinal: Positive: Negative Genitourinary: Positive: Negative Musculoskeletal: Positive: Arthralgia, Myalgia Neurological: Positive: Negative Psychological: Positive: Negative All Other Systems Reviewed And Are Negative: Yes Physical Exam Triage Information Reviewed: Yes Appearance: Well-Appearing, No Pain Distress, Well-Nourished Vital Signs: Initial Vital Signs Temp 97.9 F 01/20/18 14:34 Pulse 55 01/20/18 14:34 Resp 18 01/20/18 14:34 BP 130/80 01/20/18 14:34 Pulse Ox 98 01/20/18 14:34 Vital Signs Reviewed: Yes ENT: Positive: Hearing grossly normal. Negative: Nasal congestion, Nasal drainage, Trismus, Muffled voice, Hoarse voice Neck: Positive: Tenderness @ - right and left trapezius Respiratory: Positive: Lungs clear, Normal breath sounds, No respiratory distress, No accessory muscle use Cardiovascular: Positive: RRR, No Murmur Musculoskeletal: Positive: ROM Intact, No Edema Neurological: Positive: Alert Psychological Exam: Normal Skin Exam: Normal Neck Pain Course/Dx - Differential Dx/Diagnosis Provider Diagnoses: cervical strain. rhomboid strain Discharge - Sign-Out/Discharge Documenting (check all that apply): Patient Departure All imaging exams completed and their final reports reviewed: No Studies - Discharge Plan Condition: Stable Disposition: HOME Prescriptions: Cyclobenzaprine TAB* [Flexeril TAB*] 5 - 10 mg PO TID PRN #12 tab PRN Reason: Spasms Patient Education Materials: Cervical Strain (ED), Soft Cervical Collar (ED), Thoracic Pain (ED) Referrals: Fareed Wheat MD [Primary Care Provider] - 1 Week (if not better) Additional Instructions: continue ibuprofen PT consult if not improved in a few days see your MD next week if not better sot cervical collar - Billing Disposition and Condition Condition: STABLE Disposition: Home Images Head: 1 - bilat trapzius and rhomboid tenderness. No midline spinous tenderness
== END 2018-01-20 15:09 | disposition home or self-care (01) ==
LOC: UCEAST 14:19
DX: S16.1XXA Strain of muscle, fascia and tendon at neck level, initial encounter (principal); S46.919A Strain of unspecified muscle, fascia and tendon at shoulder and upper arm level, unspecified arm, initial encounter; X50.3XXA Overexertion from repetitive movements, initial encounter; Y93.B9 Activity, other involving muscle strengthening exercises; Y92.9 Unspecified place or not applicable
CPT/HCPCS: 99213; G0463

== ENCOUNTER 2018-01-21 17:26 | Emergency (ER) | payer OTHER ==
[2018-01-21 18:02] VITALS: BP 113/60
--- NOTE | 2018-01-21 18:48 | UC ---
Neck Pain HPI - HPI Summary HPI Summary: 22-year-old male presents with complaints of continued neck pain which started yesterday after performing overhead weight lifting at the gym. He was evaluated at this facility yesterday for same complaint. He was recommended NSAIDs, muscle relaxant, and placed in a soft cervical collar. States pain has not improved despite taking ibuprofen and tizanidine. His last dose was around 1:30 this afternoon. Describes the pain as constant tightness or pulling. Pain is located bilaterally along the trapezius muscles with the right being worse than the left. The pain worsens with extension and turning his head to the left. Denies fever, chills, headache, flu-like symptoms, numbness tingling or weakness of the upper extremities. - History of Current Complaint Chief Complaint: UCBackPain Stated Complaint: NECK AND UPPER BACK PAIN Time Seen by Provider: 01/21/18 18:09 Hx Obtained From: Patient Onset/Duration Of Injury/Symptoms: Hours Timing: Constant Onset/Duration: Sudden Onset Severity: Moderate Pain Intensity: 9 Character: Spasmotic - Tightness, pulling Aggravating Factors: Movement Alleviating Factors: Nothing Associated Signs & Symptoms: Negative: Bruising, Fever, Nuchal Rigity, Weakness , Headache, Paresthesia - Allergies/Home Medications Allergies/Adverse Reactions: Allergies Allergy/AdvReac Type Severity Reaction Status Date / Time BENZYL PEROXIDE (TOPICAL) Allergy Severe Rash Uncoded 01/21/18 18:02 PMH/Surg Hx/FS Hx/Imm Hx - Additional Past Medical History Additional PMH: Denies significant past medical history - Surgical History Surgical History: Yes Surgery Procedure, Year, and Place: RIGHT CLAVICLE. 07/2012- LEFT FOOT CALCANEUS /TALUS FUSION- PATIENT HAS A SCREW IN LEFT FOOT AND HAD PAIN/BURNING/PULLING SENSATION IN FOOT AT SITE OF SCREW WHEN WE ATTEMPTED TO SCAN HIS KNEE AT THE 3T - PT WAS RESCHEDULED FOR 1.5 AND WAS FINE- PT SHOULD NOT BE SCHEDULED FOR 3T. pyleoplasty to left kidney 03/30. MMT REPAIR LEFT KNEE - Family History Known Family History: Positive: Hypertension Negative: Cardiac Disease, Diabetes - Social History Occupation: Unemployed Lives: With Family Alcohol Use: Rare Alcohol Amount: 1 drink per week Substance Use Type: None Smoking Status (MU): Never Smoked Tobacco Type: Smokeless Tobacco Have You Smoked in the Last Year: Yes - Immunization History Most Recent Influenza Vaccination: none Review Of Systems Constitutional: Positive: Negative Skin: Positive: Negative Respiratory: Positive: Negative Cardiovascular: Positive: Negative Gastrointestinal: Positive: Negative Musculoskeletal: Positive: Other: - See history of present illness Neurological: Positive: Negative All Other Systems Reviewed And Are Negative: Yes Physical Exam Triage Information Reviewed: Yes Appearance: Well-Appearing, No Pain Distress, Well-Nourished Vital Signs: Initial Vital Signs Temp 98 F 01/21/18 17:57 Pulse 61 01/21/18 17:57 Resp 18 01/21/18 17:57 BP 113/60 01/21/18 17:57 Pulse Ox 100 01/21/18 17:57 Vital Signs Reviewed: Yes Neck: Positive: No Lymphadenopathy, Tenderness @ - Bilateral trapezius muscles with spasming noted on right. Respiratory: Positive: Lungs clear, Normal breath sounds, No respiratory distress Cardiovascular: Positive: RRR, No Murmur, Pulses Normal, Brisk Capillary Refill Musculoskeletal: Positive: Strength Intact, ROM Limited @ - Cervical extension and rotation to the left due to pain Neurological: Positive: Alert, Other: - Sensation intact distally Skin Exam: Normal Diagnostics - Radiology No standard instances Xray Interpretation: No Acute Changes - Preliminary reading of cervical x-ray by myself. No acute fracture, subluxation, or active disease. Radiology Interpretation Completed By: ED Physician Neck Pain Course/Dx - Course Course Of Treatment: 22 year old male presents for continued neck pain after weight lifting. Was seen at this facility 1 day prior for same.Taking ibuprofen and tizandine without relief. Exam revealed bilateral soft tissue tenderness over trapezius muscles with significant spasming on the right side. Cervical X- ray was negative for acute pathology. Will provide prescription for 1 time dose of diazepam to be taken tonight before bed to try to provide relief from the muscle spasm. He is to continue with conservative treatment as previously recommended starting tomorrow. Follow up with PCP if no improvement in symptoms. Warning symptoms requiring immediate medical evaluation were reviewed. Verbalizes understanding and agrees with POC. - Differential Dx/Diagnosis Provider Diagnoses: Cervical strain Discharge - Sign-Out/Discharge Documenting (check all that apply): Patient Departure All imaging exams completed and their final reports reviewed: No - Discharge Plan Condition: Stable Disposition: HOME Prescriptions: diazePAM [Diazepam] 5 mg PO BEDTIME #1 tablet MDD 1 Patient Education Materials: Cervical Strain (ED) Referrals: Fareed hWeat MD [Primary Care Provider] - 3 Days Additional Instructions: I have prescribed to a one time dose of Valium to help relax the muscles. This will cause drowsiness and to not take and drive or operate machinery. Do not take this with any alcohol and do not combine with the other muscle relaxant that was prescribed to you. Take ibuprofen (Advil, Motrin) 600 mg every 8 hours for the next 5-7 days. Be sure to take this with some food. He may take [id number] acetaminophen (Tylenol) according to directions for any additional pain needs. Starting tomorrow you may restart the tizanidine as prescribed to you previously as needed for severe pain or spasm. This medication is also sedating so do not take it and drive or operate machinery. Use the soft cervical collar as needed. I would recommend using a heating pad or taking a hot shower to help relax the muscles. Use for 15-20 minutes 3-4 times a day. I would do some gentle range of motion exercises moving her neck through all of its movements to try to help loosen up her muscles. Do not push past the point of pain. Follow-up with your primary care provider in 3 days for reevaluation. Seek immediate medical attention in the emergency room if you develop a fever greater than 100.5 F, have a severe headache, started having visual changes, have persistent vomiting, develop any weakness, numbness, or tingling in your arms or hands, or have any worsening of symptoms. - Billing Disposition and Condition Condition: STABLE Disposition: Home
--- NOTE | 2018-01-22 07:57 | RAD ---
Indication: Neck pain. 3 views of the cervical spine demonstrates no fracture. Straightening of the normal lordosis. Spinal canal appears to be intact. Disc spaces all well-preserved. No prevertebral soft tissue swelling is noted. 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 IMPRESSION: No recent injury of the cervical spine is noted.
--- NOTE | 2018-01-22 09:35 | UC ---
- Progress Note Progress Note: XR from last night radiologist read: Order Information: SP CERVICAL 2-3 VWS Accession Number: [id number] CPT: 04841 Indication: Neck pain. 3 views of the cervical spine demonstrates no fracture. Straightening of the normal lordosis. Spinal canal appears to be intact. Disc spaces all well-preserved. No prevertebral soft tissue swelling is noted. 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 IMPRESSION: No recent injury of the cervical spine is noted. No change in plan of care. Discharge - Sign-Out/Discharge Documenting (check all that apply): Post-Discharge Follow Up All imaging exams completed and their final reports reviewed: Yes - Discharge Plan Condition: Stable Disposition: HOME Prescriptions: diazePAM [Diazepam] 5 mg PO BEDTIME #1 tablet MDD 1 Patient Education Materials: Cervical Strain (ED) Referrals: Fareed Wheat MD [Primary Care Provider] - 3 Days Additional Instructions: I have prescribed to a one time dose of Valium to help relax the muscles. This will cause drowsiness and to not take and drive or operate machinery. Do not take this with any alcohol and do not combine with the other muscle relaxant that was prescribed to you. Take ibuprofen (Advil, Motrin) 600 mg every 8 hours for the next 5-7 days. Be sure to take this with some food. He may take [id number] acetaminophen (Tylenol) according to directions for any additional pain needs. Starting tomorrow you may restart the tizanidine as prescribed to you previously as needed for severe pain or spasm. This medication is also sedating so do not take it and drive or operate machinery. Use the soft cervical collar as needed. I would recommend using a heating pad or taking a hot shower to help relax the muscles. Use for 15-20 minutes 3-4 times a day. I would do some gentle range of motion exercises moving her neck through all of its movements to try to help loosen up her muscles. Do not push past the point of pain. Follow-up with your primary care provider in 3 days for reevaluation. Seek immediate medical attention in the emergency room if you develop a fever greater than 100.5 F, have a severe headache, started having visual changes, have persistent vomiting, develop any weakness, numbness, or tingling in your arms or hands, or have any worsening of symptoms. - Billing Disposition and Condition Condition: STABLE Disposition: Home
== END 2018-01-21 19:45 | disposition home or self-care (01) ==
LOC: UCEAST 17:26
DX: S16.1XXA Strain of muscle, fascia and tendon at neck level, initial encounter (principal); X58.XXXA Exposure to other specified factors, initial encounter; Y93.B3 Activity, free weights; Y92.9 Unspecified place or not applicable
CPT/HCPCS: 72040; 99212; G0463

== ENCOUNTER 2018-09-07 17:48 | Emergency (ER) | payer OTHER ==
[2018-09-07 18:17] VITALS: BP 117/71
[2018-09-07] MEDS ORDERED: HYDROcodone/ACETAMIN 5-325 MG* 1 TAB PO ONE (18:38)
--- NOTE | 2018-09-07 18:40 | UC ---
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 hx of similar problems in past took ada - History of Current Complaint Chief Complaint: UCBackPain Stated Complaint: NECK PAIN Time Seen by Provider: 09/07/18 18:22 Hx Obtained From: Patient Onset/Duration Of Injury/Symptoms: Hours Mechanism Of Injury: No Known Trauma Timing: Constant Onset/Duration: Gradual Onset Severity: Moderate Pain Intensity: 7 Pain Scale Used: 0-10 Numeric Location: Discrete At: - rigth trapezius Character: Aching, Stiff, Spasmotic Aggravating Factors: Position, Movement Alleviating Factors: Position Associated Signs & Symptoms: Positive: Negative Head: 1 - pain/tenderness here - Allergies/Home Medications Allergies/Adverse Reactions: Allergies Allergy/AdvReac Type Severity Reaction Status Date / Time BENZYL PEROXIDE (TOPICAL) Allergy Severe Rash Uncoded 09/07/18 18:17 Home Medications: Home Medications Cyclobenzaprine TAB* [Flexeril TAB*] 1 tab PO TID PRN 09/07/18 [History Confirmed 09/07/18] PMH/Surg Hx/FS Hx/Imm Hx Previously Healthy: Yes - Surgical History Surgical History: Yes Surgery Procedure, Year, and Place: RIGHT CLAVICLE. 07/2012- LEFT FOOT CALCANEUS /TALUS FUSION- PATIENT HAS A SCREW IN LEFT FOOT AND HAD PAIN/BURNING/PULLING SENSATION IN FOOT AT SITE OF SCREW WHEN WE ATTEMPTED TO SCAN HIS KNEE AT THE 3T - PT WAS RESCHEDULED FOR 1.5 AND WAS FINE- PT SHOULD NOT BE SCHEDULED FOR 3T. pyleoplasty to left kidney 03/30. MMT REPAIR LEFT KNEE - Family History Known Family History: Positive: Hypertension Negative: Cardiac Disease, Diabetes - Social History Alcohol Use: Occasionally Alcohol Amount: 1 drink per week Substance Use Type: None Smoking Status (MU): Never Smoked Tobacco Type: Smokeless Tobacco Have You Smoked in the Last Year: Yes - Immunization History Most Recent Influenza Vaccination: none Review of Systems All Other Systems Reviewed And Are Negative: Yes Constitutional: Positive: Negative Skin: Positive: Negative Eyes: Positive: Negative ENT: Positive: Negative Respiratory: Positive: Negative Cardiovascular: Positive: Negative Gastrointestinal: Positive: Negative Genitourinary: Positive: Negative Motor: Positive: Negative Musculoskeletal: Positive: Myalgia - right trap Neurological: Positive: Negative Psychological: Positive: Negative Physical Exam Triage Information Reviewed: Yes Appearance: Well-Appearing, No Pain Distress, Well-Nourished Vital Signs: Initial Vital Signs Temp 97.9 F 09/07/18 18:12 Pulse 56 09/07/18 18:12 Resp 16 09/07/18 18:12 BP 117/71 09/07/18 18:12 Pulse Ox 100 09/07/18 18:12 Vital Signs Reviewed: Yes Eyes: Positive: Conjunctiva Clear ENT: Positive: Hearing grossly normal. Negative: Nasal congestion, Nasal drainage, Trismus, Muffled voice, Hoarse voice Dental Exam: Normal Neck: Positive: Other: - see image/limited ROM michelle extension and turn to left. Negative: Supple Respiratory: Positive: Lungs clear, Normal breath sounds Cardiovascular: Positive: RRR, No Murmur Musculoskeletal: Positive: ROM Intact, No Edema Neurological: Positive: Alert Psychological Exam: Normal Skin Exam: Normal Neck Pain Course/Dx - Differential Dx/Diagnosis Provider Diagnosis: Strain of right trapezius muscle, Strain of cervical portion of right trapezius muscle Discharge - Sign-Out/Discharge Documenting (check all that apply): Patient Departure All imaging exams completed and their final reports reviewed: No Studies - Discharge Plan Condition: Stable Disposition: HOME Patient Education Materials: Cervical Strain (ED), Soft Cervical Collar (ED) Referrals: Artemio Bland [Medical Doctor] - 5 Days Additional Instructions: PT consult - Billing Disposition and Condition Condition: STABLE Disposition: Home
== END 2018-09-07 18:50 | disposition home or self-care (01) ==
LOC: UCEAST 17:48
DX: S16.1XXA Strain of muscle, fascia and tendon at neck level, initial encounter (principal); S46.811A Strain of other muscles, fascia and tendons at shoulder and upper arm level, right arm, initial encounter; X58.XXXA Exposure to other specified factors, initial encounter; Y92.9 Unspecified place or not applicable; Z88.8 Allergy status to other drugs, medicaments and biological substances
CPT/HCPCS: 99213; G0463